=== PATIENT | female | born 1985 | race Caucasian/White ===

== ENCOUNTER → 2017-10-29 | Day surgery (SDC) | payer OTHER ==
[~2017-10-29] VITALS: Ht 165.1 cm; Wt 79.7 kg
[~2017-10-29] MED LIST: *MEPERIDINE 25 MG INJ VIAL PERIprocedural Use ONLY ONE; *morphine SULFATE 8 MG/ML PERIprocedure ONLY ONE; ACETAMINOPHEN 1000 MG/100 ML 100 ML IV ONE; BUPIVACAINE/EPINEPHRINE 0.5% 50 ML VIAL ONE; BUPIVACAINE/EPINEPHRINE 0.5% PF 10 ML VIAL ONE; CEFAZOLIN INJ 2,000 MG in SODIUM CHLORIDE 0.9% INJ 100 ML IV SCH; CHLORHEXIDINE GLUCONATE 2 % 1 PACK (2 CLOTHS) TOPICAL PRN; DO NOT ADM ANY ANTICOAGULANT DRUGS PRN; HEPARIN SODIUM - IV 10,000 UNITS/10 ML VIAL ONE; LACTATED RINGER'S 1000 ML IV PRN; LIDOCAINE 1%/EPINEPHrine 1:100,000 SOLN 30 ML VIAL ONE; LIDOCAINE HCL 1% PF 5 ML SYRINGE OTHER ONE; METOPROLOL TARTRATE 25 MG TAB PO PRN; MIDAZOLAM HCL 2 MG/2 ML VIAL ONE; ONDANSETRON HCL 4 MG/2 ML VIAL ONE; POVIDONE IODINE 5% (ANTISEPSIS KIT) 4 APPLICATIONS EACH NARE PRN; PROPOFOL 200 MG/20 ML AMP IV ONE; PROPOFOL 200 MG/20 ML AMP ONE; PROPOFOL 500 MG/50 ML INJ 50 ML ONE; SODIUM BICARBONATE 8.4% INJ 0 ML ONE; SODIUM CHLORID 0.9% 500 ML IV PRN; SODIUM CHLORIDE 0.9% 20 ML VIAL ONE; VANCOMYCIN 500 MG VIAL ONE; ceFAZolin INJ 1,000 MG VIAL ONE
[2017-10-29 10:25] VITALS: BP 116/87; PULSE 64; RESP 16; TEMP 97.6; O2SAT 99
--- NOTE | 2017-10-29 10:26 | RADRPT ---
EXAM DATE/TIME: 10/29/2017 09:43 [place] COMPARISON: CHEST SINGLE AP, June 17, 2016, 21:01. INDICATIONS : Post infusaport placement. MEDICAL HISTORY : Leimyosarcoma SURGICAL HISTORY : None. ENCOUNTER: Initial ACUITY: 1 day PAIN SCORE: 0/10 LOCATION: Bilateral chest FINDINGS: Interval placement of left Siloly-r-Tsuq with tip projected at the cavoatrial junction. No evidence of pneumothorax. The lungs are symmetrically aerated and clear. Both hemidiaphragms are well deline ated. The heart is normal in size. CONCLUSION: [id number] catheter tip in good position. No evidence of pneumothorax. Kory Michael MD on October 29, 2017 at 10:24 Board Certified Radiologist. This report was verified electronically.
--- NOTE | 2017-10-29 14:56 | MP ---
cc: Alexander Lin MD DATE OF OPERATION: 10/29/2017 DATE OF OPERATION: 10/29/2017. PREOPERATIVE DIAGNOSES: 1. Metastatic sarcoma. 2. History of infected skin associated with a recently placed right-sided Port-A-Cath. POSTOPERATIVE DIAGNOSES: 1. Metastatic sarcoma. 2. History of infected skin associated with a recently placed right-sided Port-A-Cath. PROCEDURE PERFORMED: 1. Left internal jugular vein Infusaport placement. 2. Intraoperative interpretation of fluoroscopic images by . ATTENDING SURGEON: MD Riley PHOTO MACHINE OPERATOR: Staff. ANESTHESIA: TIVA and local anesthetic. ESTIMATED BLOOD LOSS: Less than 10 mL. FINDINGS: 1. Left subclavian vein accessed. Unable to pass the wire, also with poor visualization on ultrasound. 2. Left internal jugular vein normal to small-sized but widely patent, accessed easily under ultrasound guidance. 3. Tip of Infusaport catheter in atriocaval junction, tunneled down to left chest wall without kinking, good anatomic position. 4. Port-A-Cath aspirated blood and flushed with heparinized saline without complication. INDICATIONS FOR PROCEDURE: The patient is a 32-year-old female who has a history of abdominal sarcoma. The patient was diagnosed recently with a recurrence and was recommended to undergo chemotherapy. She underwent a right-sided Port-A-Cath placement; however, this was associated with a cellulitis and was concerned this was involved in the infection and this was removed by myself in the office urgently to prevent any possibility of bloodstream infection with an infected prosthetic. The patient was followed up with resolution of her right chest wall infection and requires an implantable Port-A-Cath placement for treatment for chemotherapy for her metastatic sarcoma. The risks, benefits, and alternatives to Infusaport placement were discussed with the patient in detail prior to the procedure. The patient agreed to undergo the procedure. DESCRIPTION OF PROCEDURE: The patient was taken to the operating room, placed in supine position, placed under TIVA anesthetic. The patient's left neck and chest wall were prepped and draped in sterile fashion. Timeout was performed. The left subclavian vein was accessed on the first attempt; however, unable to pass the wire with multiple attempts, although they had some venous blood in the syringe. After multiple other attempts including another access of the vein, we still were unable to pass a wire through the left subclavian vein past the area of the manubrium. At this point in time, we performed intraoperative ultrasound, which really failed to show any definitive subclavian vein at that time. We were able to ultrasound the left neck and a fairly normal to small-sized internal jugular vein was noted. This is widely patent and compressed well. We were able to access this on first attempt with the 18-gauge finder needle in the Infusaport kit and passed the wire without difficulty. It was confirmed on fluoroscopy to be in the venous system. We were able to at this point in time make a small incision in the left base of the neck at the percutaneous stick site for internal jugular vein, as well as a second incision in the left chest wall with a 15 blade scalpel. Using Bovie electrocautery as well as hemostats to dissect out a pocket on the chest wall and dissect a tunnel from the stick site to the Port-A-Cath site. We did at this point in time use the breakaway dilator introducer assembly to introduce the 8-[place] PowerPort catheter into the venous system to the left internal jugular vein without difficulty. This was confirmed to be in good position in the venous system. We then tunneled the proximal portion of the catheter through the stick site, down over the clavicle, into the chest wall port site. We assembled the port under earring maker's recommendations and placed this into the pocket without difficulty. This was again confirmed to be the right length and was custom cut such based on fluoroscopic imaging. This was aspirated of blood easily with heparinized saline and flushed with heparinized saline as well. We then closed the percutaneous stick site incision as well as the Port-A-Cath incision with 4-0 Monocryl and a sterile Tegaderm dressing was applied. At this point in time, the patient was discontinued from anesthesia and taken to the PACU in stable condition. The patient tolerated the procedure well with no apparent complications. All counts were correct. I was present and scrubbed for the entire procedure. MD EKATERINA Cunningham/LIVAN , 02:19 PM , 02:56 PM
== END | disposition home or self-care (01) ==
LOC: HSDC 05:17
PROVIDERS: ATTEND Surgery
DX: T82.898A Other specified complication of vascular prosthetic devices, implants and grafts, initial encounter (principal); L03.319 Cellulitis of trunk, unspecified; C49.9 Malignant neoplasm of connective and soft tissue, unspecified; C22.0 Liver cell carcinoma
CPT/HCPCS: 00532; 36561; 71045; 76000; 76937; C1788; J0131; J0690; J1644; J2175; J2250; J2270; J2405; J3010; J7120; J3370